=== PATIENT | female | born 1990 | race Caucasian/White ===

== ENCOUNTER 2021-02-01 00:10 | Observation (INO) | payer BC, SELFPAY ==
[2021-02-01 00:27] VITALS: BP 108/72; PULSE 82
[2021-02-01 00:30] VITALS: BP 118/74; PULSE 89; TEMP 36.8
[2021-02-01 01:06] VITALS: BMI 26.6
--- NOTE | 2021-02-01 01:06 | OBADM ---
This patient, Grace Healy, admitted to the OB room Labor/Delivery/Recovery 105 for observation. Patient/family oriented to hospital policies and general routines including ID bracelet, bed and alarms, visiting hours, pain management, procedures, bathroom and other care routines, personal items, smoking policy, room service/diet, and visiting hours. Patient/Family are encouraged to report perceived risks to care and to ask questions if they do not understand what they are told or what they should do.
--- NOTE | 2021-02-05 10:03 | PM.OBTRLD ---
OB - Triage/Final Diagnosis Visit Information Reason for evaluation: threatened labor Comments/Additional reasons for admission: I have assessed the risk for this patient, Grace Healy, and determined that she would benefit from observation care.
== END 2021-02-01 03:28 | disposition home or self-care (01) ==
PROVIDERS: Admitting Provider Obstetrics & Gynecology; PCP Internal Medicine; Visit Provider Obstetrics & Gynecology
DX: O47.9 False labor, unspecified (principal); Z3A.00 Weeks of gestation of pregnancy not specified
CPT/HCPCS: G0378; G0379

== ENCOUNTER 2021-02-25 10:41 | Outpatient (RCR) | payer BC, SELFPAY ==
--- NOTE | 2021-02-22 10:15 | PC.NURSE ---
BPP 01/15.
[2021-02-22 10:16] VITALS: BP 110/81; PULSE 90
--- NOTE | ~2021-02-25 | US_ITS ---
EXAMINATION: US OB BPP wo non-stress DATE: 02/22/2021 10:22 INDICATION: Biophysical assessment, third trimester TECHNIQUE: Real-time pelvic ultrasound was performed. The interpreting radiologist was not present fo r the study. COMPARISON: None. FINDINGS: There is a single living fetus in vertex presentation. The placenta is tear/right. heart rate i s 135 beats per minute (bpm). Biophysical profile performed by the technologist: breathing (30 sec sustained breathing in 30 minutes): 2 out of 2 movement (3 gross body movements in 30 minutes): 2 out of 2 tone (one episode of curykfr-pxfizbwln-sgscmiv limb movement): 2 out of 2 Amniotic fluid pocket (2 cm): 2 out of 2 Total score: 8 out of 8 IMPRESSION: 1. Single living fetus in vertex presentation. 2. Biophysical profile 8 out of 8. Reviewed, dictated and finalized at location A.
[2021-02-25 11:08] VITALS: BP 108/66; PULSE 86
== END 2021-03-13 07:42 | disposition home or self-care (01) ==
LOC: ANHOBOP 10:41
PROVIDERS: PCP Internal Medicine; Visit Provider Obstetrics & Gynecology
DX: O48.0 Post-term pregnancy (principal); Z3A.40 40 weeks gestation of pregnancy
CPT/HCPCS: 59025; 76819

== ENCOUNTER 2021-03-01 06:34 | Inpatient (IN) | payer BC, SELFPAY ==
[2021-03-01] VITALS (129 sets, daily range): BP systolic 79–232; BP diastolic 48–118; PULSE 64–137; RESP 18; TEMP 36.6–37.1; O2SAT 99–100; BMI 26.6
--- NOTE | 2021-03-01 06:34 | LDADM ---
This patient, Grace Healy, was admitted to Labor/Delivery/Recovery 106 on 03/01/21 at 06:34. Plans for labor, pain management and were discussed with patient. Patient/family oriented to hospital policies and general routines including ID bracelet, bed and alarms, visiting hours, pain management, procedures, bathroom and other care routines, personal items, smoking policy, room service/diet and guest tray routines, infant security routines, and visiting hours. Patient/Family are encouraged to report perceived risks to care and to ask questions if they do not understand what they are told or what they should do. See OBIX for further documentation.
--- OUTSIDE RECORDS SUMMARY | 2021-03-01 06:38 | XMS_ITS | Encounter Summary ---
:1990 Author Reason for Visit return OB visit Assessment and Plan 1. Routine care ? streptococcus group B, cul ture, vaginal or rectal Discussion Note: None recorded.Patient educational handouts: No information available. Plan of Care Reminders Provider Appointments None recorded. ? ? Lab Streptococcus And erson Group B, Culture, Vaginal 01/31/2021 Hospit al or Rectal Referral None recorded. ? ? Procedures None recorded. ? ? Surgeries None recorded. ? ? Imaging None recorded. ? ? Medications Name Start Date ? ? azithromycin 250 mg tablet ? TAKE 2 TABLETS BY MOUTH TODAY, THEN TAKE 1 TABLET KENDAL LY FOR 4 DAYS folic acid 11/11/2017 Notes: PNV/ Fe BID/ Vit C/ Zync Medications Administered None recorded. Vitals Height Weight Blood Pressure 5 ft 7 in 169 lbs 112/76 mm[Hg] Results Lab Results Date Name Specimen Result Interpretation Description Value Range Status Address ? 01/31/2021 Streptococcus ? Strep Gp negative negative Final [facility]: Group B, [address] [id number], [address], or Rectal [place] Allergies
--- OUTSIDE RECORDS SUMMARY | 2021-03-01 06:38 | XMS_ITS | Encounter Summary ---
:1990 Author Reason for Visit return OB visit Assessment and Plan 1. Routine care Discussion Note: None recorded.Patient educational handouts: No information available. Plan of Care Reminders Provider Appointments None ? ? recorded. Lab None ? ? recorded. Referral None ? ? recorded. Procedures None ? ? recorded. Surgeries None ? ? recorded. Imaging None ? ? recorded. Medications Name Start Date ? ? azithromycin 250 mg tablet ? TAKE 2 TABLETS BY MOUTH TODAY, THEN TAKE 1 TABLET KENDAL LY FOR 4 DAYS folic acid 11/11/2017 Notes: PNV/ Fe BID/ Vit C/ Zync Medications Administered None recorded. Vitals Height Weight Blood Pressure 5 ft 7 in 167 lbs 110/78 mm[Hg] Results Lab Results None recorded. Allergies Code Code System Name Reaction Severity Onset NKDA ? ? ? Problems Name Status Onset Date Source ? Active 07/19/2020 History Procedures Date Name Performed by ? 11/27/2018 SONOGRAPHER Procedure Information not avai lable Notes: colposcopy Lgsil CATALINO 1
--- OUTSIDE RECORDS SUMMARY | 2021-03-01 06:38 | XMS_ITS | Encounter Summary ---
[...] C/ Zync Medications Administered None recorded. Vitals Weight Blood Pressure 163.5 lbs 108/72 mm[Hg] Results Lab Results None recorded. Allergies Code Code System Name Reaction Severity Onset NKDA ? ? ? Problems Name Status Onset Date Source ? Active 07/19/2020 History Procedures Date Name Performed by ? 11/27/2018 RECOVERY RN Procedure Information not lorenzo ji Notes: colposcopy Lgsil CATALINO 1
--- OUTSIDE RECORDS SUMMARY | 2021-03-01 06:38 | XMS_ITS | Encounter Summary ---
:1990 Author Reason for Visit return OB visit Assessment and Plan 1. Routine care 2. Acute sinusitis ? Zithromax Z-Reji 250 mg tab let Discussion Note: None recorded.Patient educational handouts: No [...] Pressure 5 ft 7 in 169 lbs 122/68 mm[Hg] Results Lab Results None recorded. Allergies Code Code System Name Reaction Severity Onset NKDA ? ? ? Problems Name Status Onset Date Source ? Active 07/19/2020 History Procedures Date Name Performed by ? 11/27/2018 SCHEDULE ANALYST
--- OUTSIDE RECORDS SUMMARY | 2021-03-01 06:38 | XMS_ITS | Encounter Summary ---
[...] Weight Blood Pressure 5 ft 7 in 171 lbs 114/72 mm[Hg] Results Lab Results None recorded. Allergies Code Code System Name Reaction Severity Onset NKDA ? ? ? Problems Name Status Onset Date Source ? Active 07/19/2020 History Procedures Date Name Performed by ? 11/27/2018 DECK LID FITTER Procedure Information not avai lable Notes: colposcopy Lgsil CATALINO 1
--- OUTSIDE RECORDS SUMMARY | 2021-03-01 06:38 | XMS_ITS ---
:1990 Author Care Team Providers Name Role Phone [facility] Primary Care Provider Unavailable Allergies Code Code System Name Reaction Severity Status Onset NKDA ? Medications Name Status Start Date Stop Date ? ? amoxicillin 875 mg-potassium clavulanate 125 mg tablet Completed ? 10/04/2017 TAKE 1 TABLET BY MOUTH EVERY 12 HOURS azithromycin 250 mg tablet Active ? Not a vailable TAKE 2 TABLETS BY MOUTH TODAY, THEN TAKE 1 TABLET DAILY FOR 4 D AYS folic acid Active 11/11/2017 Not available nitrofurantoin monohydrate/macrocrystals 100 mg capsule Active ? Not available TAKE 1 CAPSULE BY MOUTH TWICE A DAY FOR 7 DAYS norethindrone (contraceptive) 0.35 mg tablet Completed ? 07/15/2020 TAKE 1 TABLET BY MOUTH EVERY DAY Notes: PNV/ Fe BID/ Vit C/ Zync Problems Name Status Onset Date Source ? Unknown 10/23/2017 History Active 07/19/2020 History Suppression of Menstruation Active ? Hist ory Procedures Date Name Performed by ? 11/27/2018 CAREERS COUNSELLOR Procedure Information not avai lable Notes: colposcopy Lgsil CATALINO 1 Notes: R foot surgery at age 15 Results Lab Results Date Name Specimen Result Interpretation Description Value Range Status Address ? 01/31/2021 Streptococcus ? Strep Gp B negative negati ve Final [facility]: Group B, [facility] [address], [address], [place] or Rectal
--- OUTSIDE RECORDS SUMMARY | 2021-03-01 06:38 | XMS_ITS | Encounter Summary ---
[...] Pressure 5 ft 7 in 169 lbs 126/72 mm[Hg] Results Lab Results None recorded. Allergies Code Code System Name Reaction Severity Onset NKDA ? ? ? Problems Name Status Onset Date Source ? Active 07/19/2020 History Procedures Date Name Performed by ? 11/27/2018 IMMUNOLOGY SPECIALIST Procedure Information not avai lable Notes: colposcopy Lgsil CATALINO 1
--- OUTSIDE RECORDS SUMMARY | 2021-03-01 06:38 | XMS_ITS | Encounter Summary ---
:1990 Author Reason for Visit return OB visit Assessment and Plan 1. Routine care ? glucose tolerance test, [facility], 1-hour ? HIV (1+2) Ab screen, serum ? hemoglobin + hematocrit, b lood Discussion Note: None recorded.Patient educational handouts: No information available. Plan of Care Reminders Provider Appointments None recorded. ? ? Lab Glucose [place] Tolerance Test, 11/30/2020 Hospital Gestational, 1-Hour ? HIV (1+2) Ab Alfonso rson Screen, Serum 11/30/2020 Hospital ? Hemoglobin + Alfonso rson Hematocrit, Blood 11/30/2020 Hospital Referral None recorded. ? ? Procedures None [...] Weight Blood Pressure 5 ft 7 in 158 lbs 114/62 mm[Hg] Results
--- OUTSIDE RECORDS SUMMARY | 2021-03-01 06:38 | XMS_ITS ---
:1990 Author Care Team Providers Name Role Phone JESSICA ESTRADA MD Primary Care Provider [phone] Allergies Code Code System Name Reaction Severity Status Onset NKDA ? Medications Name Status Start Date Stop Date ? ? amoxicillin 875 mg-potassium clavulanate 125 mg tablet Completed ? 10/04/2017 TAKE 1 TABLET BY MOUTH EVERY 12 HOURS folic acid Active ? Not available nitrofurantoin monohydrate/macrocrystals 100 mg capsule Complete d ? 07/15/2020 TAKE 1 CAPSULE BY MOUTH TWICE A DAY FOR 7 DAYS norethindrone (contraceptive) 0.35 mg tablet Completed ? 07/15/2020 TAKE 1 TABLET BY MOUTH EVERY DAY Notes: PNV Problems Name Status Onset Date Source ? Unknown 10/23/2017 ? Active 07/19/2020 ? Suppression of Menstruation Unknown ? [place] unter Procedures Date Name Performed by ? 11/27/2018 TSA SCREENER Procedure Information not avai lable Notes: colpo LGSIL melissa 1 02/15/2015 Ultrasound, Pelvic Transabdominal & [address] [facility] Transvaginal [address] [place], [place] [address] ([address]) 04/19/2015 Ultrasound, Survey, OB [facility] Maternal Eval [address] [place], [place] [address] ([address]) 09/12/2015 Ultrasound, Survey, OB [facility] Maternal Eval 21
[2021-03-01] MEDS: LACTATED RINGERS 1,000 ML 125 ML IV CONT ×3 (07:00→14:15)
[2021-03-01] MEDS: OXYTOCIN 30 UNITS/NS 500 ML 30 UNITS/500 ML BAG IV CONT (07:03)
[2021-03-01 07:08] LABS: Basophils Percent Auto 0.3 % (0.2-1.2); Eosinophils Absolute Auto 0.1 K/mm3 (0-0.3); Hemoglobin 10.4 g/dL (12.0-15.0); Immature Granulocyte Absolute 0.03 K/mm3 (0.00-0.031); Immature Granulocyte Percent A 0.4 % (0-0.5); Lymphocytes Absolute Auto 1.99 K/mm3 (0.9-3.2); Lymphocytes Percent Auto 25.8 % (18.3-44.2); Mean Corpuscular HGB Conc 32.5 g/dl (32-36); Mean Corpuscular Hemoglobin 27.4 pg (26-34); Mean Corpuscular Volume 84.4 fl (80-100); Mean Platelet Volume 10.9 fl (7.4-10.4); Monocytes Absolute Auto 0.5 K/mm3 (0.1-0.6); Monocytes Percent Auto 6.7 % (2.6-8.5); Neutrophils Absolute Auto 5.1 K/mm3 (1.3-6.7); Neutrophils Percent Auto 65.8 % (45.5-73.1); Platelet Count Result 217 k/mm3 (150-375); Red Blood Count 3.79 M/mm3 (4.2-5.4); Red Cell Distribution Width 14.2 % (11.5-14.5); White Blood Count 7.7 K/mm3 (4.5-10.0)
--- NOTE | 2021-03-01 07:25 | WPDANESEPP ---
Anes - Eval Pre Procedure Date/Time: 03/01/21 07:25 Pre Op Diagnosis: iol Patient Data Age: 30 Gender: F Height: 1.7 m Weight: 77 kg Last Vital Signs Pulse 82 03/01/21 07:16 BP 131/76 03/01/21 07:16 Allergies Allergy/AdvReac Type Severity Reaction Status Date / Time No Known Drug Allergies Allergy Unknown Verified 05/19/18 13:46 Home Medications Medication Instructions Recorded Confirmed Type ferrous sulfate 325 mg PO DAILY 02/17/21 03/01/21 History prenat.vits,mary,neq-rxzw-iqzad 1 tablet PO DAILY 02/17/21 03/01/21 History [ #2] Laboratory Tests 03/01/21 03/01/21 06:52 06:52 WBC 7.7 K/mm3 K/mm3 (4.5-10.0) RBC 3.79 M/mm3 L M/mm3 (4.2-5.4) Hgb 10.4 g/dL L g/dL (12.0-15.0) Hct 32.0 % L % (37.0-47.0) MCV 84.4 fl fl (80-100) MCH 27.4 pg pg (26-34) MCHC 32.5 g/dl g/dl (32-36) RDW 14.2 % % (11.5-14.5) Plt Count 217 k/mm3 k/mm3 (150-375) MPV 10.9 fl H fl (7.4-10.4) Immature Gran % (Auto) 0.4 % % (0-0.5) Neut % (Auto) 65.8 % % (45.5-73.1) Lymph % (Auto) 25.8 % % (18.3-44.2) Saunders % (Auto) 6.7 % % (2.6-8.5) Eos % (Auto) 1.0 % % (0-4.4) Baso % (Auto) 0.3 % % (0.2-1.2) Lymph # (Auto) 1.99 K/mm3 K/mm3 (0.9-3.2) Saunders # (Auto) 0.5 K/mm3 K/mm3 (0.1-0.6) Eos # (Auto) 0.1 K/mm3 K/mm3 (0-0.3) Baso # (Auto) 0.0 K/mm3 K/mm3 (0.0-0.1) Abs Immat Gran (auto) 0.03 K/mm3 K/mm3 (0.00-0.031) Absolute Neuts (auto) 5.1 K/mm3 K/mm3 (1.3-6.7) Absolute Nucleated RBC 0.0 K/mm3 K/mm3 (0.0-0.012) Nucleated RBC % 0.0 % % (0.0-0.2) RPR Pending Patient hx anesthesia problems: none Family hx anesthesia problems: none [facility] Family History Family History Grandparent Dementia Social History Social History Smoking status: Never smoker Substance use: never Spiritual care concerns: No Exam Day of Procedure 03/01/21 07:25 Patient weight: overweight Heart: regular rate and rhythm Lungs: normal air movement Airway: Mallampati scale class II Neurological: alert and oriented
[2021-03-01 11:24] LABS: Rapid Plasma Reagin Non-Reactive (NonReactive)
[2021-03-01] MEDS: ONDANSETRON INJ 4 MG/2 ML VIAL IV PUSH (14:08)
[2021-03-01] MEDS: SODIUM CHLORIDE 0.9% IV 300 ML 600 ML I-UTERINE (14:15)
--- NOTE | 2021-03-01 16:50 | WPDHPUPDATE1 ---
History and Physical Update Update Date/Time: 03/01/21 16:50 History and Physical has been reviewed, including an updated exam of the patient. There are NO changes in the patient's condition. Risks, benefits, and alternatives have been discussed and questions answered. Patient agrees to proceed with procedure.
--- NOTE | 2021-03-01 16:51 | WPDOBADMIT ---
Obstetrics - Admit Note Admission Note: record reviewed. No pertinent additions to the history and/or any subsequent changes in the physical findings that are not consistent with the expected course of the were found. Additions to the history and/or subsequent changes in the physical findings follow. None.
--- NOTE | 2021-03-01 16:51 | PM.OBPRVD ---
OB - Delivery Note Procedure Route of delivery: Episiotomy description: None Laceration Description: None Specimen: No Quantitative Blood Loss (ml): 200 Anesthesia type: Epidural Disposition: floor Narrative: Patient prepped and draped in usual manner for this procedure. Maternal expulsive efforts delivered vertex with nuchal cord reduced. rest of baby was delivered with notation of cord around the right leg as well. Cord was clamped and cut placenta delivered spontaneously and the uterus was well contracted. Cervix vagina vulva were inspected no lacerations or tears. At this point the procedure was considered terminated. Baby Weeks of gestation at delivery: 41 gender: Male Weight (pounds): 8 Weight (ounces): 8 score one minute: 8 score five minutes: 9
[2021-03-01] MEDS: OXYTOCIN 30 UNITS/NS 500 ML 30 UNITS/500 ML BAG 125 UNITS IV CONT (17:09)
--- NOTE | 2021-03-01 19:28 | OBPPTRN ---
Patient transferred to post room #284 via wheelchair. Support person present. Oriented to unit, room, information board, rooming in, admission packet and security measures. Patient verbalizes understanding.
[2021-03-01] MEDS: ACETAMINOPHEN 325 MG TABLET 650 MG PO (22:10)
[2021-03-01] MEDS: IBUPROFEN 600 MG TABLET PO (22:10)
[2021-03-02 03:08] VITALS: BP 112/80; PULSE 67; RESP 18; TEMP 36.7
[2021-03-02] MEDS: ACETAMINOPHEN 325 MG TABLET 650 MG PO (04:42)
[2021-03-02] MEDS: IBUPROFEN 600 MG TABLET PO ×2 (04:43→16:26)
[2021-03-02 04:45] LABS: Hematocrit 30.3 % (37.0-47.0); Hemoglobin 9.8 g/dL (12.0-15.0)
[2021-03-02] MEDS: DOCUSATE SODIUM 100 MG CAPSULE PO ×2 (07:00→16:26)
[2021-03-02] MEDS: POLYSACCHARIDE IRON COMPLEX 150 MG CAPSULE PO ×2 (07:00→16:26)
[2021-03-02] MEDS: MULTIVIT/MIN/PREN/FOL AC/IRON TABLET 1 TAB PO (07:00)
[2021-03-02] MEDS: LANOLIN (LANSINOH) 7.5 GM CREAM 1 APPLIC TOPICAL (07:01)
[2021-03-02 08:00] VITALS: BP 103/75; PULSE 81; RESP 18; TEMP 36.3
--- NOTE | 2021-03-02 08:37 | WPDANLDPN2 ---
Anes-Prog Note L&D Date/Time: 03/02/21 08:37 Comfortable throughout: labor and delivery Neuraxial method: epidural Epidural/Spinal procedure site: clean & non-tender Neuro status: Neuro function grossly intact. Cardiovascular status: normal Respiratory status: normal Airway patency: baseline Mental status: baseline Post-Op hydration status: normal Vital Signs: Last Vital Signs Temp 98.0 F 03/02/21 03:08 Pulse 67 03/02/21 03:08 Resp 18 03/02/21 03:08 BP 112/80 03/02/21 03:08 Pulse Ox 100 03/01/21 16:39 Pain score (VAS): 06/19 I/O: Intake & Output 03/01/21 03/02/21 03/02/21 23:59 07:59 15:59 Intake Total 800 Output Total 615 Balance 185 Post-procedural complaints: none Patient feedback: Patient satisfied with anesthetic care.
--- NOTE | 2021-03-02 09:20 | PC.NURSE ---
Consult with pt., mother reports infant is eagerly feeding without issue. This is mother?s 3rd child to breastfeed. Requested mother call out next feeding for observation per policy. Reviewed feeding cues, frequencies, duration of feedings, feeding elimination flow sheet, and signs of adequate intake. Reviewed signs of a correct latch, effective nursing and suck swallow ratio. Instructed feeding should be initiated three hours from start of last feeding or if feeding cues are noted before. Mother voiced understanding of information shared.
[2021-03-02 12:00] VITALS: BP 104/68; PULSE 82; RESP 16; TEMP 36.4
--- NOTE | 2021-03-02 12:34 | PM.OBDSVD ---
DS: Admitting Diagnosis Discharge Date 03/02/2021 Admitting Diagnosis OB - DS: Summary OB Procedures : None OB Procedures Intrapartum: Spontaneous Vag Delivery OB Procedures: : None Time Spent with Patient Time attestation: Total time spent providing and/or coordinating discharge services: DS: Data Data Completed and Pending Labs on day of discharge: Labs from last 24 hours 03/02/21 03:54 Hgb 9.8 L Hct 30.3 L Discharge Plan Discharge Discharging Clinician: Davis Santos Patient Disposition: Home, Self-Care Activity: as tolerated Diet: as tolerated Patient Instructions: Antibiotic Form Stand Alone Forms: General Discharge Information Follow-up/Referrals: Davis Santos MD [Physician] - 3 Weeks Discharge Medications: New ibuprofen 600 mg Tablet 600 mg PO Q6H PRN (Reason: Cramping) Qty: 30 RF: 0 Continued ferrous sulfate 325 mg (65 mg iron) Tablet 325 mg PO DAILY RF: 0 #2 Tablet 1 tablet PO DAILY RF: 0 Date of admission: 03/01/21 06:34 Primary Care Provider: JacquieTrino Admitting Provider: Davis Santos Attending physician on admission: Davis Santos Condition: Stable
--- NOTE | 2021-03-02 13:12 | PC.NURSE ---
Patient was given the opportunity to view the discharge video Mother & Baby Care, The First Two Weeks and to ask questions. Patient declined viewing the video and has been given the mother/baby guide for home reference.
[2021-03-02] MEDS: WITCH HAZEL 40 PADS 1 PAD TOPICAL (16:26)
[2021-03-02] MEDS: BENZOCAINE 20% AER SPR (*SP) 56 GM CAN 1 SPRAY TOPICAL (16:26)
--- NOTE | 2021-03-02 16:35 | PC.NURSE ---
Self care and infant care discharge instructions given including follow up visit date and time. Mother verbalized understanding. No questions or concerns voiced. Very pleasant and cooperative. at side.
[2021-03-03 08:26] VITALS: BP 109/73; PULSE 86; RESP 20; TEMP 36.9; O2SAT 100
== END 2021-03-02 17:38 | disposition home or self-care (01) | DRG 807 ==
LOC: ANHLDR 06:37 → ANHOB2 20:14
PROVIDERS: Admitting Provider Obstetrics & Gynecology; PCP Internal Medicine; Visit Provider Obstetrics & Gynecology
DX: O69.2XX0 Labor and delivery complicated by other cord entanglement, with compression, not applicable or unspecified (principal); Z37.0 Single live birth; Z3A.41 41 weeks gestation of pregnancy; O36.8330 Maternal care for abnormalities of the fetal heart rate or rhythm, third trimester, not applicable or unspecified
CPT/HCPCS: 36415; 85014; 85018; 85025; 86592; 86850; 86900; 86901; A9270; J2405; J2590; J2795; J7030; J7120